=== PATIENT | male | born 2000 | race Caucasian/White ===

== ENCOUNTER 2019-06-25 18:16 | Emergency (ER) | payer BC ==
--- NOTE | 2019-06-25 20:16 | UC ---
Abdominal Pain Male HPI - HPI Summary HPI Summary: 19-year-old male comes in with a chief complaint of burning with urination and left flank pain started about 3 days ago. Started with burning with urination and then he noticed left flank pain its gradually moved down into the left lower quadrant. Pain on the left side is about a 4 out of 10. No fevers or chills. He can make the flank pain worse with bending forward. Denies any concern of STI. Reports his last sexual encounter was 2 months ago. Normal bowels no change in eating. Denies any testicular pain. Patient take showers and not baths. Denies any new soaps. - History of Current Complaint Chief Complaint: UCGU Stated Complaint: PRIVATE ISSUE Time Seen by Provider: 06/25/19 19:43 Pain Intensity: 4 - Allergies/Home Medications Allergies/Adverse Reactions: Allergies Allergy/AdvReac Type Severity Reaction Status Date / Time pitted fruits Allergy Severe See Comment Uncoded 06/25/19 19:33 PMH/Surg Hx/FS Hx/Imm Hx Previously Healthy: Yes - Surgical History Surgical History: None - Family History Known Family History: Positive: Non-Contributory - Social History Alcohol Use: Occasionally Substance Use Type: None Smoking Status (MU): Never Smoked Tobacco Review of Systems All Other Systems Reviewed And Are Negative: Yes Constitutional: Positive: Negative Skin: Positive: Negative Eyes: Positive: Negative ENT: Positive: Negative Respiratory: Positive: Negative Cardiovascular: Positive: Negative Gastrointestinal: Positive: Other - SEE HPI Genitourinary: Positive: Dysuria Motor: Positive: Negative Neurovascular: Positive: Negative Musculoskeletal: Positive: Negative Neurological: Positive: Negative Psychological: Positive: Negative Is Patient Immunocompromised?: No Physical Exam Triage Information Reviewed: Yes Appearance: Well-Appearing, No Pain Distress, Well-Nourished Vital Signs: Initial Vital Signs Temp 98.2 F 06/25/19 19:28 Pulse 62 06/25/19 19:28 Resp 18 06/25/19 19:28 BP 144/82 06/25/19 19:28 Pulse Ox 100 06/25/19 19:28 Vital Signs Reviewed: Yes Eye Exam: Normal Eyes: Positive: Conjunctiva Clear Neck: Positive: Supple, Nontender Respiratory: Positive: Lungs clear, Normal breath sounds, No respiratory distress Cardiovascular: Positive: RRR Abdomen Description: Positive: Nontender, Soft, Other: - Patient is nontender to palpation of the left flank and left lower quadrant but he states that area of the discomfort.. Negative: CVA Tenderness (R), CVA Tenderness (L) Male Genital Exam: Positive: Normal Genitalia, Other - Normal exam. Testicles are nontender there is no swelling. Inguinal canals are nontender.. Negative: Scrotum Tenderness (R), Scrotum Tenderness (L), Testicular Tenderness (R), Testicular Tenderness (L), Urethral Discharge Musculoskeletal: Positive: Strength Intact, ROM Intact Neurological: Positive: Alert, Muscle Tone Normal Psychological: Positive: Age Appropriate Behavior Skin Exam: Normal Abd Pain Male Course/Dx - Course Course Of Treatment: Teacher Of The Sight Impaired: ([id number]) Software Test Specialist: (MATEUS) Report Date: 2018 20:20:00 Report Status: Final ======= Start of Report Content EXAM: CT Abdomen and Pelvis Without Contrast EXAM DATE/TIME: 06/25/2019 8:20 PM CLINICAL HISTORY: 19 years old, male; Abdominal pain; Flank; Right lower quadrant (rlq); Patient HX: Llq pain for 1 day no other symptoms. ; Additional info: Left flank pain TECHNIQUE: Imaging protocol: Computed tomography of the abdomen and pelvis without contrast. Radiation optimization: All CT scans at this facility use at least one of these dose optimization techniques: automated exposure control; mA and/or kV adjustment per patient size (includes targeted exams where dose is matched to clinical indication); or iterative reconstruction. COMPARISON: No relevant prior studies available. FINDINGS: Lungs : No acute findings in visualized lung bases. Liver: Unremarkable. No mass. Gallbladder and bile ducts: Unremarkable. No calcified gallstones. No ductal dilation. Pancreas: Unremarkable. No ductal dilation. Spleen: Unremarkable. No splenomegaly. Adrenals: Unremarkable. No mass. Kidneys and ureters: Unremarkable. No hydronephrosis. No calcified stones. Stomach and bowel: No dilated bowel to suggest obstruction. Large amount of stool in the colon. Occasional diverticula in the sigmoid colon. No diverticulitis. Appendix: No evidence of appendicitis. Intraperitoneal space: No free air or significant free fluid. Vasculature: No abdominal aortic aneurysm. Lymph nodes: No enlarged lymph nodes. Bladder: Distended.. Contains no calcified stones. Reproductive: Unremarkable as visualized. Bones/joints: No acute fracture or aggressive osseous lesion. Soft tissues: Unremarkable. IMPRESSION: 1. No acute findings. No renal calculi or hydronephrosis. 2. Large amount stool in colon. Correlate clinically for constipation. To contact [facility] with a general question: Operations Center - [phone] For direct physician to physician contact: Physician Hotline - [phone] [facility] ([facility] Facility ID #[id number]) End of Report Content I discussed the CT report and the urine analysis with the patient. Patient's main chief complaint is dysuria primarily burning in the urethra itself. The bladder was distended slightly on CT. Patient reports he feels he completely empties when he urinates any stream is normal. Denies any concern of any constipation or change in bowels. Gonorrhea chlamydia are pending. At this time we'll treat for potential prostatitis with Bactrim DS by mouth twice a day 10 days. If the gonorrhea or chlamydia come back positive will need to be treated for that. We discussed that if his condition got worse he needs to go the emergency department for further evaluation and care. If his condition persists he'll follow-up with urology. - Differential Dx/Clinical Impression Provider Diagnosis: Left flank pain, Left sided abdominal pain, Dysuria Discharge ED - Sign-Out/Discharge Documenting (check all that apply): Patient Departure All imaging exams completed and their final reports reviewed: Yes - Discharge Plan Condition: Stable Disposition: HOME Prescriptions: Sulfamethox/Trimethoprim DS* [Bactrim DS 800/160 TAB*] 1 tab PO BID #20 tab Patient Education Materials: Dysuria (ED), Acute Abdominal Pain (ED), Flank Pain (ED), Prostatitis (ED) Referrals: Tito Mckeon MD [Medical Doctor] - Reagan Cardoza MD [Medical Doctor] - [facility] @ [Outside] Additional Instructions: FOLLOW UP WITH UROLOGY, DR MCKEON OR DR CARDOZA, IF NOT COMPLETELY IMPROVED. GO TO THE EMERGENCY DEPARTMENT IF YOUR CONDITION WORSENS; PAIN, FEVER, YOU FEEL ILL OR ANY QUESTIONS OR CONCERNS. - Billing Disposition and Condition Condition: STABLE Disposition: Home
[2019-06-25 21:31] VITALS: BP 137/77
[2019-06-25] MEDS ORDERED: Sulfamethox/Trimethoprim DS 800/160* TAB PO ONE ×2 (21:52→22:23)
[2019-06-26 11:18] LABS: ABS Eosinophils 0.1 10^3/ul (0-0.6); ABS Lymphocytes 2.1 10^3/ul (1.0-4.8); ABS Monocytes 0.4 10^3/ul (0-0.8); ABS Neutrophils 4.1 10^3/ul (1.5-7.7); Eosinophil % 1.3 %; Hematocrit 45 % (42-52); Lymphocyte % 30.5 %; Mean Corpuscular HGB Conc 36 g/dL (31-36); Mean Corpuscular Hemoglobin 31 pg (27-31); Mean Corpuscular Volume 86 fL (80-94); Mean Platelet Volume 8.7 fL (7.4-10.4); Nucleated Red Blood Cells % 0.1; Platelet Count 331 10^3/uL (150-450); Red Blood Count 5.16 10^6 /uL (4.18-5.48); Red Cell Distribution Width 13 % (10-15); White Blood Count 6.7 10^3/uL (3.5-10.8)
[2019-06-26 11:22] LABS: Albumin 5.1 g/dL (3.2-5.2); Calcium 9.7 mg/dL (8.6-10.3); Potassium 4.2 mmol/L (3.5-5.0); Total Bilirubin 0.6 mg/dL (0.2-1.0)
[2019-06-26 11:28] LABS: Albumin/Globulin Ratio 2.1 (1-3); BUN/Creatinine Ratio 18.3 (8-20); EGFR African American 144.9 (>60); EGFR Non-African American 119.8 (>60); Globulin 2.4 g/dL (2-4); Total Protein 7.5 g/dL (6.4-8.9)
[2019-06-29 15:18] LABS: Chlamydia trachomatis NAA Negative (Negative); Neisseria gonorrhoeae (GC) NAA Negative (Negative)
== END 2019-06-25 22:30 | disposition home or self-care (01) ==
LOC: UCEAST 18:16
DX: R10.9 Unspecified abdominal pain (principal)
CPT/HCPCS: 36415; 74176; 80053; 81003; 85025; 87086; 87491; 87591; 99202; A9270-GY; G0463